=== PATIENT | male | born 1955 | race American Indian/Alaskan Native ===

== ENCOUNTER 2016-05-24 20:20 | Emergency (ER) | payer SELFPAY ==
[2016-05-24 20:54] VITALS: BP 118/80
[2016-05-24 21:28] LABS: Basophils % (Auto) 0.6 % (0.0-1.8); Eosinophils % (Auto) 2.9 % (0.0-4.3); Hemoglobin 13.2 gm/dl (11.8-15.2); Mean Corpuscular HGB Conc 34 % (32-34); Mean Corpuscular Hemoglobin 29 pg (28-32); Mean Corpuscular Volume 85 fl (84-94); Platelet Count 308 K/mm3 (140-440); Red Blood Count 4.61 M/mm3 (3.65-5.03); Red Cell Distribution Width 15.4 % (13.2-15.2); White Blood Count 10.4 K/mm3 (4.5-11.0)
[2016-05-24 21:45] LABS: BUN/Creatinine Ratio 18.23; Calcium 8.9 mg/dL (8.4-10.2); Potassium 3.9 mmol/L (3.6-5.0)
--- NOTE | 2016-05-25 08:28 | XRay Report ---
Chest 2 views. Findings: The heart and pulmonary vessels appear normal. The lungs are mildly hyperinflated and clear. There is no pleural fluid. Impression: No acute findings.
== END 2016-05-24 21:15 | disposition left against medical advice (07) ==
LOC: ED 20:20
DX: R06.00 Dyspnea, unspecified (principal); Z53.21 Procedure and treatment not carried out due to patient leaving prior to being seen by health care provider
CPT/HCPCS: 36415; 71020; 80048; 85025

== ENCOUNTER 2016-10-24 00:15 | Emergency (ER) | payer SELFPAY | END 2016-10-24 02:00 | disposition left against medical advice (07) | LOC: ED 00:15 | DX: J00 Acute nasopharyngitis [common cold] (principal); Z53.21 Procedure and treatment not carried out due to patient leaving prior to being seen by health care provider ==

== ENCOUNTER 2017-01-11 03:50 | Emergency (ER) | payer MEDICARE, OTHER ==
[2017-01-11 04:41] VITALS: BP 137/90
--- NOTE | 2017-01-11 04:48 | Emergency Department Report ---
ED General Adult HPI - General Chief complaint: Extremity Problem,Nontraumatic Stated complaint: BAD KNEES Time Seen by Provider: 01/11/17 04:43 Source: patient, RN notes reviewed Mode of arrival: Ambulatory Limitations: No Limitations - History of Present Illness Initial comments: This is a 61-year-old male, he is previously unknown to me. [facility] The patient presents to the ER with a complaint of painless bilateral knee "popping." No other injuries, no other complaints. -: Gradual, month(s) Severity scale (0 -10): 0 Quality: other Consistency: intermittent Improves with: rest Worsens with: movement Associated Symptoms: denies other symptoms - Related Data Previous Rx's Medication Instructions Recorded Last Taken Type ALBUTEROL Inhaler [ProAir HFA 2 puff IH QID PRN #2 inhalation 09/30/15 01/10/17 Rx Inhaler] Ipratropium/Albuterol Sulfate 1 ampul IH TIDRT #30 ampul.neb 09/30/15 01/10/17 Rx [DUONEB *Not for PRN Use*] Acetaminophen [Tylenol Arthritis] 650 mg PO Q6HR PRN #20 tablet.er 01/11/17 Unknown Rx Gluc 2Kcl/Chondr/Parmjit Hy/Hy AC 1 each PO QDAY #30 capsule 01/11/17 Unknown Rx [Glucosamine & Chondroitin Cap] Ibuprofen [Motrin] 600 mg PO Q8H PRN #30 tablet 01/11/17 Unknown Rx Allergies Allergy/AdvReac Type Severity Reaction Status Date / Time No Known Allergies Allergy Verified 01/11/17 04:39 ED Review of Systems ROS: Stated complaint: BAD KNEES Other details as noted in HPI Constitutional: denies: fever Eyes: denies: eye discharge ENT: denies: epistaxis Respiratory: denies: shortness of breath Cardiovascular: denies: chest pain Gastrointestinal: denies: abdominal pain Musculoskeletal: denies: back pain Skin: denies: lesions ED Past Medical Hx - Past Medical History Previous Medical History?: Yes Hx Hypertension: Yes Hx CVA: No Hx Heart Attack/AMI: No Hx Congestive Heart Failure: No Hx Diabetes: No Hx Deep Vein Thrombosis: No Hx Pulmonary Embolism: No Hx GERD: No Hx Liver Disease: No Hx Renal Disease: No Hx Sickle Cell Disease: No Hx Arthritis: Yes Hx Headaches / Migraines: No Hx Seizures: No Hx Kidney Stones: No Hx Psychiatric Treatment: Yes (PTSD,ANXIETY) Hx Asthma: No Hx COPD: Yes Hx Tuberculosis: No Hx Dementia: No Hx HIV: No - Surgical History Past Surgical History?: Yes Hx Coronary Stent: No Hx Open Heart Surgery: No Hx Pacemaker: No Hx Internal Defibrillator: No Hx Cholecystectomy: No Hx Appendectomy: No Hx Breast Surgery: No Additional Surgical History: intestinal blockage,ABDOMINAL SURGERY 1994 - Social History Smoking Status: Current Every Day Smoker Substance Use Type: None - Medications Home Medications: Home Medications Medication Instructions Recorded Confirmed Last Taken Type ALBUTEROL Inhaler [ProAir HFA 2 puff IH QID PRN #2 inhalation 09/30/15 01/11/17 01/10/17 Rx Inhaler] Ipratropium/Albuterol Sulfate 1 ampul IH TIDRT #30 ampul.neb 09/30/15 01/11/17 01/10/17 Rx [DUONEB *Not for PRN Use*] Acetaminophen [Tylenol Arthritis] 650 mg PO Q6HR PRN #20 tablet.er 01/11/17 Unknown Rx Gluc 2Kcl/Chondr/Parmjit Hy/Hy AC 1 each PO QDAY #30 capsule 01/11/17 Unknown Rx [Glucosamine & Chondroitin Cap] Ibuprofen [Motrin] 600 mg PO Q8H PRN #30 tablet 01/11/17 Unknown Rx ED Physical Exam - General Limitations: No Limitations General appearance: alert, in no apparent distress - Head Head exam: Present: atraumatic, normocephalic - Eye Eye exam: Present: normal appearance, EOMI. Absent: nystagmus - ENT ENT exam: Present: normal exam, normal orophraynx, mucous membranes moist, normal external ear exam - Neck Neck exam: Present: normal inspection, full ROM. Absent: tenderness, meningismus - Respiratory Respiratory exam: Present: normal lung sounds bilaterally. Absent: respiratory distress, wheezes, rales, rhonchi, stridor, chest wall tenderness - Cardiovascular Cardiovascular Exam: Present: regular rate, normal rhythm, normal heart sounds. Absent: bradycardia, tachycardia, irregular rhythm, systolic murmur, diastolic murmur, rubs, gallop - GI/Abdominal GI/Abdominal exam: Present: soft, normal bowel sounds. Absent: distended, tenderness, guarding, rebound, rigid, pulsatile mass - Rectal Rectal exam: Present: deferred - Extremities Exam Extremities exam: Present: normal inspection, full ROM, normal capillary refill. Absent: tenderness, pedal edema, joint swelling, calf tenderness - Back Exam Back exam: Present: normal inspection, full ROM. Absent: tenderness, CVA tenderness (R), CVA tenderness (L), muscle spasm, paraspinal tenderness, vertebral tenderness - Neurological Exam Neurological exam: Present: alert, oriented X3, normal gait, other (Extraocular movements intact. Tongue midline. No facial droop. Facial sensation intact to light touch in the V1, V2, V3 distribution bilaterally. 5 and 5 strength in 4 extremities.. Sensation is intact to light touch in 4 extremities.). Absent : motor sensory deficit - Psychiatric Psychiatric exam: Present: normal affect, normal mood - Skin Skin exam: Present: warm, dry, intact, normal color. Absent: rash ED Course Vital Signs 01/11/17 01/11/17 04:04 04:39 Temperature 98.7 F Pulse Rate 93 H 88 Respiratory 20 20 Rate Blood Pressure 111/77 Blood Pressure 137/90 [Left] O2 Sat by Pulse 95 96 Oximetry ED Medical Decision Making - Lab Data Vital Signs 01/11/17 01/11/17 04:04 04:39 Temperature 98.7 F Pulse Rate 93 H 88 Respiratory 20 20 Rate Blood Pressure 111/77 Blood Pressure 137/90 [Left] O2 Sat by Pulse 95 96 Oximetry - Radiology Data Radiology results: image reviewed interpreted by me: X-ray of the bilateral knees demonstrates no fracture or dislocation, DJD is suggested - Medical Decision Making Differential diagnosis: Arthritis, DJD Assessment and plan: 61-year-old male with probable arthritis and bilateral knees. He is afebrile, with reassuring vital signs, walks with a steady gait, his physical exam is not consistent with fracture, dislocation, cellulitis, he is quite comfortable. He will be discharged with a prescription for acetaminophen as per his request, as well as glucosamine and chondroitin. Critical care attestation.: If time is entered above; I have spent that time in minutes in the direct care of this critically ill patient, excluding procedure time. ED Disposition Clinical Impression: Knee pain Disposition: - TO HOME OR SELFCARE Is pt being admited?: No Does the pt Need Aspirin: No Condition: Stable Instructions: Arthralgia (ED) Additional Instructions: Take medications as directed. Rest and avoid heavy lifting. Avoid strenuous physical activity. Follow-up with the primary care doctor or orthopedist within the next 6 weeks. Return to the ER right away with new pain, worse pain , migration of pain, fevers, chills, confusion, intractable nausea or vomiting, inability to tolerate liquid feeds. Prescriptions: Acetaminophen [Tylenol Arthritis] 650 mg PO Q6HR PRN #20 tablet.er PRN Reason: Pain Gluc 2Kcl/Chondr/Parmjit Hy/Hy AC [Glucosamine & Chondroitin Cap] 1 each PO QDAY # 30 capsule Ibuprofen [Motrin] 600 mg PO Q8H PRN #30 tablet PRN Reason: Pain Referrals: ROSEANN HEATH MD [Staff Physician] - 3-5 Days TO YING MD [Staff Physician] - 3-5 Days
--- NOTE | 2017-01-11 05:08 | XRay Report ---
FINAL REPORT EXAM: XR KNEE BILAT 1-2V HISTORY: Bilateral knee pain. TECHNIQUE: Frontal and lateral radiographs of each knee were obtained. No prior studies are available for comparison. FINDINGS: Note that images of the right knee were obtained with radiopaque external brace/bandage material, which obscures fine soft tissue and osseous detail. There is no fracture or dislocation. There is no significant joint effusion. There is minimal marginal spurring at the inferior pole of the left patella. There is also minimal enthesopathic changes at the anterior-superior left patella, at the distal quadriceps tendon insertion site. There is no significant joint space narrowing. No other discrete osseous abnormality is seen. No significant soft tissue abnormality is identified. IMPRESSION: Minimal spurring at the inferior pole of the left patella. No fracture, dislocation, or other significant osseous abnormality.
== END 2017-01-11 05:03 | disposition home or self-care (01) ==
LOC: ED 03:50
DX: M25.561 Pain in right knee (principal); M25.562 Pain in left knee; I10 Essential (primary) hypertension; M19.90 Unspecified osteoarthritis, unspecified site; J44.9 Chronic obstructive pulmonary disease, unspecified; F17.210 Nicotine dependence, cigarettes, uncomplicated
CPT/HCPCS: 99283

== ENCOUNTER 2017-05-02 05:49 | Emergency (ER) | payer OTHER ==
--- NOTE | 2017-05-02 06:34 | XRay Report ---
FINAL REPORT EXAM: XR CHEST ROUTINE 2V HISTORY: Shortness of breath TECHNIQUE: PA and lateral chest radiographs PRIORS: None. FINDINGS: No mediastinal shift. Cardiac silhouette is not enlarged. No pneumothorax, effusion, or focal pulmonary opacity. No acute skeletal finding. IMPRESSION: No focal pulmonary opacity.
[2017-05-02] MEDS ORDERED: XOPENEX IH ONE ×2 (06:41→06:46)
[2017-05-02] MEDS ORDERED: CATAPRES ONE (06:41)
[2017-05-02] MEDS ORDERED: CATAPRES PO ONE (06:46)
[2017-05-02 08:26] LABS: Basophils # (Auto) 0.1 K/mm3 (0.0-0.1); Basophils % (Auto) 0.7 % (0.0-1.8); Eosinophils # (Auto) 0.2 K/mm3 (0.0-0.4); Eosinophils % (Auto) 2.9 % (0.0-4.3); Hematocrit 37.7 % (35.5-45.6); Hemoglobin 12.4 gm/dl (11.8-15.2); Lymphocytes # (Auto) 1.2 K/mm3 (1.2-5.4); Mean Corpuscular HGB Conc 33 % (32-34); Mean Corpuscular Hemoglobin 28 pg (28-32); Mean Corpuscular Volume 86 fl (84-94); Monocytes # (Auto) 0.6 K/mm3 (0.0-0.8); Monocytes % (Auto) 6.6 % (0.0-7.3); Platelet Count 249 K/mm3 (140-440); Red Blood Count 4.39 M/mm3 (3.65-5.03); Red Cell Distribution Width 14.3 % (13.2-15.2)
[2017-05-02] MEDS ORDERED: ATROVENT IH ONE (08:34)
[2017-05-02] MEDS ORDERED: PROVENTIL IH ONE (08:34)
--- NOTE | 2017-05-02 08:38 | Emergency Department Report ---
ED Shortness of Breath HPI - General Chief Complaint: Dyspnea/Respdistress Stated Complaint: SOB Time Seen by Provider: 05/02/17 08:30 Source: patient, EMS Mode of arrival: Ambulatory Limitations: No Limitations - History of Present Illness Initial Comments: Mr. Galindo is 61 years old male history of COPD presented to the ER with shortness of breath and cough for the last 5 days. He described his cough as productive with greenish sputum. Patient denied any chest pain, fever, nausea or vomiting. MD Complaint: shortness of breath, cough -: Gradual - Related Data Previous Rx's Medication Instructions Recorded Last Taken Type ALBUTEROL Inhaler [ProAir HFA 2 puff IH QID PRN #2 inhalation 09/30/15 01/10/17 Rx Inhaler] Ipratropium/Albuterol Sulfate 1 ampul IH TIDRT #30 ampul.neb 09/30/15 01/10/17 Rx [DUONEB *Not for PRN Use*] Acetaminophen [Tylenol Arthritis] 650 mg PO Q6HR PRN #20 tablet.er 01/11/17 Unknown Rx Glucosam/Chondr/Collagn/Hyalur 1 each PO QDAY #30 capsule 01/11/17 Unknown Rx [Glucosamine & Chondroitin Cap] Ibuprofen [Motrin] 600 mg PO Q8H PRN #30 tablet 01/11/17 Unknown Rx Allergies Allergy/AdvReac Type Severity Reaction Status Date / Time No Known Allergies Allergy Verified 01/11/17 04:39 ED Review of Systems ROS: Stated complaint: SOB Other details as noted in HPI Comment: All other systems reviewed and negative Constitutional: denies: chills, fever Respiratory: cough, shortness of breath, SOB at rest. denies: SOB with exertion Cardiovascular: denies: chest pain, palpitations Gastrointestinal: denies: abdominal pain, nausea, vomiting, diarrhea, constipation Skin: denies: rash Neurological: denies: headache, weakness, numbness, paresthesias ED Past Medical Hx - Past Medical History Previous Medical History?: Yes Hx Hypertension: Yes Hx CVA: No Hx Heart Attack/AMI: No Hx Congestive Heart Failure: No Hx Diabetes: No Hx Deep Vein Thrombosis: No Hx Pulmonary Embolism: No Hx GERD: No Hx Liver Disease: No Hx Renal Disease: No Hx Sickle Cell Disease: No Hx Arthritis: Yes Hx Headaches / Migraines: No Hx Seizures: No Hx Kidney Stones: No Hx Psychiatric Treatment: Yes (PTSD,ANXIETY) Hx Asthma: No Hx COPD: Yes Hx Tuberculosis: No Hx Dementia: No Hx HIV: No Additional medical history: Rt knee pain - Surgical History Past Surgical History?: Yes Hx Coronary Stent: No Hx Open Heart Surgery: No Hx Pacemaker: No Hx Internal Defibrillator: No Hx Cholecystectomy: No Hx Appendectomy: No Hx Breast Surgery: No Additional Surgical History: intestinal blockage,ABDOMINAL SURGERY 1994 - Social History Smoking Status: Current Every Day Smoker Substance Use Type: Alcohol - Medications Home Medications: Home Medications Medication Instructions Recorded Confirmed Last Taken Type ALBUTEROL Inhaler [ProAir HFA 2 puff IH QID PRN #2 inhalation 09/30/15 01/11/17 01/10/17 Rx Inhaler] Ipratropium/Albuterol Sulfate 1 ampul IH TIDRT #30 ampul.neb 09/30/15 01/11/17 01/10/17 Rx [DUONEB *Not for PRN Use*] Acetaminophen [Tylenol Arthritis] 650 mg PO Q6HR PRN #20 tablet.er 01/11/17 Unknown Rx Glucosam/Chondr/Collagn/Hyalur 1 each PO QDAY #30 capsule 01/11/17 Unknown Rx [Glucosamine & Chondroitin Cap] Ibuprofen [Motrin] 600 mg PO Q8H PRN #30 tablet 01/11/17 Unknown Rx ED Physical Exam - General Limitations: No Limitations General appearance: alert, in no apparent distress - Head Head exam: Present: atraumatic, normocephalic, normal inspection - Eye Eye exam: Present: normal appearance, PERRL - ENT ENT exam: Present: normal exam, mucous membranes moist - Neck Neck exam: Present: normal inspection. Absent: tenderness, meningismus, full ROM - Respiratory Respiratory exam: Present: wheezes, decreased breath sounds, prolonged expiratory. Absent: respiratory distress, rales, rhonchi, stridor - Cardiovascular Cardiovascular Exam: Present: regular rate, normal rhythm, normal heart sounds - GI/Abdominal GI/Abdominal exam: Present: soft, normal bowel sounds. Absent: distended, tenderness, guarding, rebound, rigid, organomegaly, mass, bruit, pulsatile mass , hernia - Extremities Exam Extremities exam: Present: normal inspection, full ROM, normal capillary refill. Absent: pedal edema, calf tenderness - Back Exam Back exam: Present: normal inspection. Absent: tenderness, CVA tenderness (R), CVA tenderness (L) - Neurological Exam Neurological exam: Present: alert, oriented X3, CN II-XII intact, normal gait, reflexes normal. Absent: motor sensory deficit - Psychiatric Psychiatric exam: Present: normal affect. Absent: agitated, anxious, manic, homicidal ideation, suicidal ideation - Skin Skin exam: Present: warm, intact, normal color. Absent: cyanosis ED Course Vital Signs 05/02/17 05/02/17 05/02/17 05:55 06:48 07:03 Temperature 97.8 F Pulse Rate 94 H 96 H 84 Pulse Rate [ Bilateral Throughout] Respiratory 20 22 Rate Respiratory Rate [Bilateral Throughout] Blood Pressure 178/117 Blood Pressure 178/117 115/84 [Right] O2 Sat by Pulse 94 96 Oximetry 05/02/17 05/02/17 05/02/17 07:43 07:46 08:00 Temperature Pulse Rate 80 73 72 Pulse Rate [ Bilateral Throughout] Respiratory 17 18 18 Rate Respiratory Rate [Bilateral Throughout] Blood Pressure 154/95 133/91 Blood Pressure [Right] O2 Sat by Pulse 96 96 Oximetry 05/02/17 05/02/17 05/02/17 08:16 08:30 08:45 Temperature Pulse Rate 75 78 Pulse Rate [ 77 Bilateral Throughout] Respiratory 18 21 Rate Respiratory 18 Rate [Bilateral Throughout] Blood Pressure 133/91 133/91 Blood Pressure [Right] O2 Sat by Pulse 95 94 Oximetry 05/02/17 05/02/17 05/02/17 08:46 08:57 09:00 Temperature Pulse Rate 71 71 Pulse Rate [ 78 Bilateral Throughout] Respiratory 19 21 Rate Respiratory 18 Rate [Bilateral Throughout] Blood Pressure 133/91 127/89 Blood Pressure [Right] O2 Sat by Pulse 100 100 Oximetry 05/02/17 05/02/17 05/02/17 09:16 09:31 09:45 Temperature Pulse Rate 78 83 88 Pulse Rate [ Bilateral Throughout] Respiratory 17 19 17 Rate Respiratory Rate [Bilateral Throughout] Blood Pressure 127/89 127/89 127/89 Blood Pressure [Right] O2 Sat by Pulse 94 95 95 Oximetry 05/02/17 05/02/17 10:00 10:15 Temperature Pulse Rate 68 78 Pulse Rate [ Bilateral Throughout] Respiratory 15 24 Rate Respiratory Rate [Bilateral Throughout] Blood Pressure 133/86 133/86 Blood Pressure [Right] O2 Sat by Pulse 95 95 Oximetry - Reevaluation(s) Reevaluation #1: 05/02/17 10:35 Patient stated that he is feeling much better. ED Medical Decision Making - Lab Data Result diagrams: 05/02/17 08:10 05/02/17 08:10 - EKG Data -: EKG Interpreted by Me EKG shows normal: sinus rhythm - EKG Data Interpretation: no acute changes - Radiology Data Radiology results: report reviewed Chest x-ray with no acute findings Critical care attestation.: If time is entered above; I have spent that time in minutes in the direct care of this critically ill patient, excluding procedure time. ED Disposition Clinical Impression: COPD exacerbation, Acute bronchitis Disposition: - TO HOME OR SELFCARE Is pt being admited?: No Condition: Stable Instructions: Chronic Bronchitis (ED), Acute Bronchitis (ED) Referrals: PRIMARY CARE, [Primary Care Provider] - 3-5 Days
[2017-05-02 08:44] LABS: BUN/Creatinine Ratio 15; Blood Urea Nitrogen 20 mg/dL (9-20); Calcium 8.8 mg/dL (8.4-10.2); Hemolysis Index 54
[2017-05-02 10:25] VITALS: BP 133/86
== END 2017-05-02 10:56 | disposition home or self-care (01) ==
LOC: ED 05:49
DX: J44.1 Chronic obstructive pulmonary disease with (acute) exacerbation (principal); J20.9 Acute bronchitis, unspecified; I10 Essential (primary) hypertension; F17.200 Nicotine dependence, unspecified, uncomplicated
CPT/HCPCS: 36415; 71020; 80048; 84484; 85025; 93005; 93010; 94640; 96372; 99284; J2930

== ENCOUNTER 2017-05-08 12:17 | Emergency (ER) | payer OTHER ==
[2017-05-08 12:31] VITALS: BP 140/88
== END 2017-05-09 07:16 | disposition left against medical advice (07) ==
LOC: ED 12:17
DX: J00 Acute nasopharyngitis [common cold] (principal); Z53.21 Procedure and treatment not carried out due to patient leaving prior to being seen by health care provider

== ENCOUNTER 2017-05-21 21:21 | Emergency (ER) | payer OTHER ==
[2017-05-21] MEDS ORDERED: DUONEB *Not for PRN Use IH ONE (21:48)
[2017-05-21 22:22] LABS: Basophils # (Auto) 0.1 K/mm3 (0.0-0.1); Basophils % (Auto) 1.4 % (0.0-1.8); Eosinophils # (Auto) 0.2 K/mm3 (0.0-0.4); Eosinophils % (Auto) 2.8 % (0.0-4.3); Hematocrit 43.1 % (35.5-45.6); Hemoglobin 14.1 gm/dl (11.8-15.2); Lymphocytes # (Auto) 1.6 K/mm3 (1.2-5.4); Lymphocytes % (Auto) 21.1 % (13.4-35.0); Mean Corpuscular HGB Conc 33 % (32-34); Mean Corpuscular Hemoglobin 29 pg (28-32); Mean Corpuscular Volume 87 fl (84-94); Monocytes # (Auto) 0.7 K/mm3 (0.0-0.8); Monocytes % (Auto) 8.8 % (0.0-7.3); Platelet Count 356 K/mm3 (140-440); Red Blood Count 4.95 M/mm3 (3.65-5.03); Red Cell Distribution Width 14.8 % (13.2-15.2)
[2017-05-21 22:41] LABS: BUN/Creatinine Ratio 22; Blood Urea Nitrogen 37 mg/dL (9-20); Calcium 8.8 mg/dL (8.4-10.2); Hemolysis Index 32
--- NOTE | 2017-05-22 00:18 | XRay Report ---
FINAL REPORT PROCEDURE: XR CHEST ROUTINE 2V TECHNIQUE: PA and lateral chest radiographs were obtained. CPT 59492 HISTORY: Shortness of breath COMPARISON: 05/02/2017 FINDINGS: Heart: Normal. Mediastinum/Vessels: Normal. Lungs/Pleural space: Lungs are expanded. There is a 1 centimeter nodule in the lower left lung. The neoplasm not excluded. There are no effusions or pneumothoraces.. Bony thorax: No acute osseous abnormality. Other: IMPRESSION: The heart size is normal.. Lungs are expanded. There is a 1 centimeter nodule in the lower left lung. The neoplasm not excluded. There are no effusions or pneumothoraces..
[2017-05-22] MEDS ORDERED: DUONEB *Not for PRN Use IH ONE ×2 (08:05→10:22)
--- NOTE | 2017-05-22 10:40 | Emergency Department Report ---
ED Shortness of Breath HPI - General Chief Complaint: Dyspnea/Respdistress Stated Complaint: CHEST COLD WITH SOB Time Seen by Provider: 05/22/17 07:39 Source: patient Mode of arrival: Ambulatory Limitations: No Limitations - History of Present Illness Initial Comments: Patient is a [id number] -[place] male with history of smoking presenting with 1 week of cough cold and congestion MD Complaint: shortness of breath, cough -: Gradual, week(s) (1) Severity: moderate Pain Scale: 0 Consistency: constant Improves With: nothing Worsens With: nothing Context: recent URI Associated Symptoms: sputum production Treatments Prior to Arrival: none - Related Data Previous Rx's Medication Instructions Recorded Last Taken Type ALBUTEROL Inhaler [ProAir HFA 2 puff IH QID PRN #2 inhalation 09/30/15 01/10/17 Rx Inhaler] Ipratropium/Albuterol Sulfate 1 ampul IH TIDRT #30 ampul.neb 09/30/15 01/10/17 Rx [DUONEB *Not for PRN Use*] Acetaminophen [Tylenol Arthritis] 650 mg PO Q6HR PRN #20 tablet.er 01/11/17 Unknown Rx Glucosam/Chondr/Collagn/Hyalur 1 each PO QDAY #30 capsule 01/11/17 Unknown Rx [Glucosamine & Chondroitin Cap] Ibuprofen [Motrin] 600 mg PO Q8H PRN #30 tablet 01/11/17 Unknown Rx ALBUTEROL Inhaler [ProAir HFA 2 puff IH QID PRN #1 inhalation 05/02/17 Unknown Rx Inhaler] Azithromycin [Zithromax Z-BRANDY] 250 mg PO DAILY 1 Days tab 05/02/17 Unknown Rx Prednisone [predniSONE 10 mg 10 mg PO .TAPER #1 tab.ds.pk 05/02/17 Unknown Rx (6-Day Pack, 21 Tabs)] ALBUTEROL Inhaler [ProAir HFA 2 puff IH QID PRN #1 inhalation 05/22/17 Unknown Rx Inhaler] Azithromycin [Zithromax Z-BRANDY] 250 mg PO DAILY #6 tablet 05/22/17 Unknown Rx Benzonatate [Tessalon Perle] 100 mg PO BID #10 capsule 05/22/17 Unknown Rx Allergies Allergy/AdvReac Type Severity Reaction Status Date / Time No Known Allergies Allergy Verified 01/11/17 04:39 ED Review of Systems ROS: Stated complaint: CHEST COLD WITH SOB Other details as noted in HPI Comment: All other systems reviewed and negative Constitutional: denies: chills, fever Eyes: denies: eye pain, eye discharge, vision change ENT: denies: ear pain, throat pain Respiratory: cough. denies: shortness of breath, wheezing Cardiovascular: denies: chest pain, palpitations Endocrine: no symptoms reported Gastrointestinal: denies: abdominal pain, nausea, diarrhea Genitourinary: denies: urgency, dysuria Musculoskeletal: denies: back pain, joint swelling, arthralgia Skin: denies: rash, lesions Neurological: denies: headache, weakness, paresthesias Psychiatric: denies: anxiety, depression Hematological/Lymphatic: denies: easy bleeding, easy bruising ED Past Medical Hx - Past Medical History Hx Hypertension: Yes Hx CVA: No Hx Heart Attack/AMI: No Hx Congestive Heart Failure: No Hx Diabetes: No Hx Deep Vein Thrombosis: No Hx Pulmonary Embolism: No Hx GERD: No Hx Liver Disease: No Hx Renal Disease: No Hx Sickle Cell Disease: No Hx Arthritis: Yes Hx Headaches / Migraines: No Hx Seizures: No Hx Kidney Stones: No Hx Psychiatric Treatment: Yes (PTSD,ANXIETY) Hx Asthma: No Hx COPD: Yes Hx Tuberculosis: No Hx Dementia: No Hx HIV: No Additional medical history: Rt knee pain - Surgical History Hx Coronary Stent: No Hx Open Heart Surgery: No Hx Pacemaker: No Hx Internal Defibrillator: No Hx Cholecystectomy: No Hx Appendectomy: No Hx Breast Surgery: No Additional Surgical History: intestinal blockage,ABDOMINAL SURGERY 1994 - Social History Smoking Status: Current Every Day Smoker Substance Use Type: None - Medications Home Medications: Home Medications Medication Instructions Recorded Confirmed Last Taken Type ALBUTEROL Inhaler [ProAir HFA 2 puff IH QID PRN #2 inhalation 09/30/15 01/11/17 01/10/17 Rx Inhaler] Ipratropium/Albuterol Sulfate 1 ampul IH TIDRT #30 ampul.neb 09/30/15 01/11/17 01/10/17 Rx [DUONEB *Not for PRN Use*] Acetaminophen [Tylenol Arthritis] 650 mg PO Q6HR PRN #20 tablet.er 01/11/17 Unknown Rx Glucosam/Chondr/Collagn/Hyalur 1 each PO QDAY #30 capsule 01/11/17 Unknown Rx [Glucosamine & Chondroitin Cap] Ibuprofen [Motrin] 600 mg PO Q8H PRN #30 tablet 01/11/17 Unknown Rx ALBUTEROL Inhaler [ProAir HFA 2 puff IH QID PRN #1 inhalation 05/02/17 Unknown Rx Inhaler] Azithromycin [Zithromax Z-BRANDY] 250 mg PO DAILY 1 Days tab 05/02/17 Unknown Rx Prednisone [predniSONE 10 mg 10 mg PO .TAPER #1 tab.ds.pk 05/02/17 Unknown Rx (6-Day Pack, 21 Tabs)] ALBUTEROL Inhaler [ProAir HFA 2 puff IH QID PRN #1 inhalation 05/22/17 Unknown Rx Inhaler] Azithromycin [Zithromax Z-BRANDY] 250 mg PO DAILY #6 tablet 05/22/17 Unknown Rx Benzonatate [Tessalon Perle] 100 mg PO BID #10 capsule 05/22/17 Unknown Rx ED Physical Exam - General Limitations: No Limitations General appearance: alert, in no apparent distress - Head Head exam: Present: atraumatic, normocephalic - Eye Eye exam: Present: normal appearance - ENT ENT exam: Present: mucous membranes moist - Neck Neck exam: Present: normal inspection - Respiratory Respiratory exam: Present: normal lung sounds bilaterally. Absent: respiratory distress - Cardiovascular Cardiovascular Exam: Present: regular rate, normal rhythm. Absent: systolic murmur, diastolic murmur, rubs, gallop - GI/Abdominal GI/Abdominal exam: Present: soft, normal bowel sounds - Rectal Rectal exam: Present: deferred - Extremities Exam Extremities exam: Present: normal inspection - Back Exam Back exam: Present: normal inspection - Neurological Exam Neurological exam: Present: alert, oriented X3 - Psychiatric Psychiatric exam: Present: normal affect, normal mood - Skin Skin exam: Present: warm, dry, intact, normal color. Absent: rash ED Course Vital Signs 05/21/17 05/22/17 05/22/17 21:30 04:16 04:30 Temperature 98.3 F Pulse Rate 83 75 74 Respiratory 26 H 19 20 Rate Blood Pressure 177/100 134/77 134/77 O2 Sat by Pulse 92 96 98 Oximetry 05/22/17 05/22/17 05/22/17 08:16 08:30 08:45 Temperature Pulse Rate 74 63 65 Respiratory 24 15 16 Rate Blood Pressure 140/72 151/96 147/83 O2 Sat by Pulse 98 98 Oximetry 05/22/17 05/22/17 05/22/17 09:00 09:15 09:30 Temperature Pulse Rate 69 71 76 Respiratory 16 15 15 Rate Blood Pressure 144/86 133/80 137/86 O2 Sat by Pulse 98 96 98 Oximetry 05/22/17 05/22/17 05/22/17 09:45 10:00 10:15 Temperature Pulse Rate 68 80 96 H Respiratory 14 17 13 Rate Blood Pressure 137/88 126/85 151/104 O2 Sat by Pulse 98 98 98 Oximetry 05/22/17 05/22/17 05/22/17 10:30 10:45 10:52 Temperature Pulse Rate 67 67 Respiratory 15 13 16 Rate Blood Pressure 137/87 138/83 O2 Sat by Pulse 94 95 Oximetry - Central Line Placement Right IJ Time Out Performed: Yes Patient Placed on Monitor/Pulse Ox: Yes MD Prep: mask, gown, gloves Central Line Prep: Chlorhexidine scrub Local Anesthesia Used: Lidocaine 1% Ultrasound Used for Placement: Yes Central Line Lumen Inserted: triple Bloods Obtained for Lab: Yes Central Line Position: good blood return, all ports aspirated, flus, sutured in place with 2-0 Dressing Applied: Tegaderm Post Procedure X-Ray: tip of catheter in good p Patient Tolerated Procedure: well Complications: none ED Medical Decision Making - Lab Data Result diagrams: 05/21/17 22:03 05/21/17 22:03 Critical care attestation.: If time is entered above; I have spent that time in minutes in the direct care of this critically ill patient, excluding procedure time. ED Disposition Clinical Impression: Acute bronchitis, Hypotension, Dehydration Disposition: OP ADMIT IP TO THIS HOSP Is pt being admited?: Yes Does the pt Need Aspirin: Yes Condition: Poor Instructions: Acute Bronchitis (ED) Prescriptions: ALBUTEROL Inhaler [ProAir HFA Inhaler] 2 puff IH QID PRN #1 inhalation PRN Reason: Shortness Of Breath Azithromycin [Zithromax Z-BRANDY] 250 mg PO DAILY #6 tablet Benzonatate [Tessalon Perle] 100 mg PO BID #10 capsule Referrals: [facility] [Other] - 3-5 Days
[2017-05-22 11:56] VITALS: BP 139/85
== END 2017-05-22 11:54 | disposition admitted as inpatient to this hospital (09) ==
LOC: ED 21:21
DX: J20.9 Acute bronchitis, unspecified (principal); I95.9 Hypotension, unspecified; E86.0 Dehydration; I10 Essential (primary) hypertension; M19.90 Unspecified osteoarthritis, unspecified site; J44.9 Chronic obstructive pulmonary disease, unspecified; F17.200 Nicotine dependence, unspecified, uncomplicated
CPT/HCPCS: 36415; 71046; 80048; 84484; 85025; 93005; 93010; 94640

== ENCOUNTER 2017-06-06 09:48 | Emergency (ER) | payer OTHER | END 2017-06-06 11:05 | disposition left against medical advice (07) | LOC: ED 09:48 | DX: Z53.21 Procedure and treatment not carried out due to patient leaving prior to being seen by health care provider (principal) ==

== ENCOUNTER 2017-07-08 05:46 | Emergency (ER) | payer SELFPAY | END 2017-07-08 06:25 | disposition left against medical advice (07) | LOC: ED 05:46 | DX: R07.89 Other chest pain (principal); Z53.21 Procedure and treatment not carried out due to patient leaving prior to being seen by health care provider ==

== ENCOUNTER 2017-10-26 14:09 | Emergency (ER) | payer SELFPAY ==
[2017-10-26] MEDS ORDERED: TESSALON PERLES PO ONE (15:53)
[2017-10-26] MEDS ORDERED: DUONEB *Not for PRN Use IH ONE (15:53)
--- NOTE | 2017-10-26 16:03 | Emergency Department Report ---
HPI - General Chief Complaint: Dyspnea/Respdistress Time Seen by Provider: 10/26/17 15:01 - HPI HPI: The patient is a 62-year-old male with a history of COPD and long-standing tobacco use, who presents for evaluation of dyspnea. The patient reports dyspnea and nonproductive cough for the past 8 hours. He states that his dyspnea has been mild to moderate in severity, exacerbated with exertion, and improved at rest. Patient denies trauma to the chest, chest pain, syncope, hemoptysis, unilateral leg swelling, recent immobilization, history of DVT or PE , hx of recent cancer. ED Past Medical Hx - Past Medical History Hx Hypertension: Yes Hx CVA: No Hx Heart Attack/AMI: No Hx Congestive Heart Failure: No Hx Diabetes: No Hx Deep Vein Thrombosis: No Hx Pulmonary Embolism: No Hx GERD: No Hx Liver Disease: No Hx Renal Disease: No Hx Sickle Cell Disease: No Hx Arthritis: Yes Hx Headaches / Migraines: No Hx Seizures: No Hx Kidney Stones: No Hx Psychiatric Treatment: Yes (PTSD,ANXIETY) Hx Asthma: No Hx COPD: Yes Hx Tuberculosis: No Hx Dementia: No Hx HIV: No Additional medical history: Rt knee pain - Surgical History Hx Coronary Stent: No Hx Open Heart Surgery: No Hx Pacemaker: No Hx Internal Defibrillator: No Hx Cholecystectomy: No Hx Appendectomy: No Hx Breast Surgery: No Additional Surgical History: intestinal blockage,ABDOMINAL SURGERY 1994 - Social History Smoking Status: Current Every Day Smoker Substance Use Type: Alcohol - Medications Home Medications: Home Medications Medication Instructions Recorded Confirmed Last Taken Type ALBUTEROL Inhaler [ProAir HFA 2 puff IH QID PRN #2 inhalation 09/30/15 01/11/17 01/10/17 Rx Inhaler] Ipratropium/Albuterol Sulfate 1 ampul IH TIDRT #30 ampul.neb 09/30/15 01/11/17 01/10/17 Rx [DUONEB *Not for PRN Use*] Acetaminophen [Tylenol Arthritis] 650 mg PO Q6HR PRN #20 tablet.er 01/11/17 Unknown Rx Glucosam/Chondr/Collagn/Hyalur 1 each PO QDAY #30 capsule 01/11/17 Unknown Rx [Glucosamine & Chondroitin Cap] Ibuprofen [Motrin] 600 mg PO Q8H PRN #30 tablet 01/11/17 Unknown Rx ALBUTEROL Inhaler [ProAir HFA 2 puff IH QID PRN #1 inhalation 05/02/17 Unknown Rx Inhaler] Azithromycin [Zithromax Z-BRANDY] 250 mg PO DAILY 1 Days tab 05/02/17 Unknown Rx Prednisone [predniSONE 10 mg 10 mg PO .TAPER #1 tab.ds.pk 05/02/17 Unknown Rx (6-Day Pack, 21 Tabs)] ALBUTEROL Inhaler [ProAir HFA 2 puff IH QID PRN #1 inhalation 05/22/17 Unknown Rx Inhaler] Azithromycin [Zithromax Z-BRANDY] 250 mg PO DAILY #6 tablet 05/22/17 Unknown Rx Benzonatate [Tessalon Perle] 100 mg PO BID #10 capsule 05/22/17 Unknown Rx ALBUTEROL Inhaler [ProAir HFA 2 puff IH QID PRN #1 inhalation 10/26/17 Unknown Rx Inhaler] Benzonatate [Tessalon Perles] 100 mg PO Q8HR #20 capsule 10/26/17 Unknown Rx predniSONE [Deltasone] 20 mg PO QDAY #5 tab 10/26/17 Unknown Rx ED Review of Systems ROS: Stated complaint: SHORTNESS OF BREATH Other details as noted in HPI Constitutional: denies: fever ENT: denies: throat or neck pain Respiratory: reports: cough, shortness of breath Cardiovascular: denies: chest pain Endocrine: denies unexplained weight loss or gain Gastrointestinal: denies: abdominal pain, nausea Genitourinary: denies: dysuria Musculoskeletal: denies: leg swelling Skin: denies: rash Neurological: denies: headache Hematological/Lymphatic: denies: easy bleeding or easy bruising Psych: denies sadness or hopelessness Physical Exam - Physical Exam Vital Signs: Vital Signs 10/26/17 14:48 Temperature 98 F Pulse Rate 75 Respiratory 16 Rate Blood Pressure 138/89 O2 Sat by Pulse 97 Oximetry Physical Exam: General: well-nourished, well-developed, no acute distress Head: Normocephalic, atraumatic Eyes: normal sclera ENT: Mucous membranes are pink and moist Neck: trachea midline, neck supple, No neck stiffness, no cervical adenopathy Respiratory: Mildly diminished breath sounds and wheezing present to apical and mid lung escoto bilaterally, no costal retractions, no respiratory distress Cardio: S1 and S2 present, no murmurs, rubs, gallops, capillary refill is brisk Abdomen: Normoactive bowel sounds, soft abdomen, no tenderness Chest WALL/Back: No tenderness to palpation of the chest wall, no CVA tenderness with percussion Musc: No pitting edema Skin: No rash Neuro: no facial drooping, normal speech Psych: Normal affect ED Course Vital Signs 10/26/17 14:48 Temperature 98 F Pulse Rate 75 Respiratory 16 Rate Blood Pressure 138/89 O2 Sat by Pulse 97 Oximetry ED Medical Decision Making - Medical Decision Making The patient was seen and examined by myself. The patient is placed on a telemetry monitor and continuous pulse ox. On initial evaluation, the patient was found to be in no distress. Evaluation orders were placed. The patient is given cough medicine, and a duoneb breathing treatment and steroids for txt of his COPD. Chest x-ray negative for focal consolidation, pleural effusions, pulmonary congestion, pneumothorax, or other acute cardio pulmonary disease process. Lab results are grossly not concerning. The patient was reevaluated and reported that their symptoms were markedly improved. On reexamination the patient is found to have normal respiratory rate and O2 sat on pulse oximetry, with no costal retractions or diminishment of breath sounds on auscultation. The patient is stable for discharge with outpatient follow-up. The patient is given follow-up and return instructions. The patient expressed understanding and agreed with the plan. The patient is discharged in stable condition. Critical care attestation.: If time is entered above; I have spent that time in minutes in the direct care of this critically ill patient, excluding procedure time. ED Disposition Clinical Impression: Asthma exacerbation in COPD, Upper respiratory infection, acute Disposition: TO HOME OR SELFCARE Is pt being admited?: No Does the pt Need Aspirin: No Condition: Stable Instructions: Asthma (ED), Upper Respiratory Infection (ED) Referrals: PRIMARY CARE, [Primary Care Provider] - 3-5 Days [facility] [Outside] - 3-5 Days Time of Disposition: 16:04
--- NOTE | 2017-10-26 16:17 | XRay Report ---
FINAL REPORT EXAM: XR CHEST 1V AP HISTORY: chest pain TECHNIQUE: Single, portable chest x-ray. PRIORS: 21 May 2017. FINDINGS: Cardiac and mediastinal silhouette within normal limits. Lungs are normally expanded, without significant vascular congestion. Nodular densities project over the bilateral lower thorax may represent nipple shadows. No focal consolidation or apparent pneumothorax. Bony thorax grossly unremarkable. IMPRESSION: 1. No acute findings. 2. Possible bilateral nipple shadows incidentally noted. Repeat chest x-ray with nipple markers may be confirmatory, as clinically indicated.
[2017-10-26 17:31] VITALS: BP 136/77
== END 2017-10-26 17:31 | disposition home or self-care (01) ==
LOC: ED 14:09
DX: J44.1 Chronic obstructive pulmonary disease with (acute) exacerbation (principal); J06.9 Acute upper respiratory infection, unspecified; I10 Essential (primary) hypertension; M19.90 Unspecified osteoarthritis, unspecified site; F17.200 Nicotine dependence, unspecified, uncomplicated
CPT/HCPCS: 71045; 93005; 93010; 96374; 99284; J2930

== ENCOUNTER 2017-10-31 10:59 | Emergency (ER) | payer OTHER ==
[2017-10-31] MEDS ORDERED: MAGNESIUM SULFATE 2GM/50ML 2 GM/50 ML BAG IV ONE (11:13)
[2017-10-31] MEDS ORDERED: ATROVENT IH ONE (11:13)
[2017-10-31] MEDS ORDERED: PROVENTIL IH ONE (11:13)
--- NOTE | 2017-10-31 11:49 | Emergency Department Report ---
ED Shortness of Breath HPI - General Chief Complaint: Dyspnea/Respdistress Stated Complaint: PALMER Time Seen by Provider: 10/31/17 11:05 Source: EMS, old records reviewed (patient seen in the ER here 10/26/2017 for COPD exacerbation and upper respiratory infection) Mode of arrival: Stretcher Limitations: No Limitations - History of Present Illness Initial Comments: 62 year male with a past medical history of COPD without oxygen use or previous intubation presents to the hospital with and wheezing upon awakening this a.m. Patient reports he felt fine the preceding days. Diminished breath sounds reported by EMS prior to arrival. Patient received albuterol and Solu-Medrol with some improvement in symptoms but residual wheezing. Patient denies pain. A mild cough productive of white sputum for that without fever. Patient's chief radiation therapist and primary care doctor affiliated with the [facility]. pt continues to smoke several cigarettes a day. - Related Data Previous Rx's Medication Instructions Recorded Last Taken Type ALBUTEROL Inhaler [ProAir HFA 2 puff IH QID PRN #2 inhalation 09/30/15 01/10/17 Rx Inhaler] Ipratropium/Albuterol Sulfate 1 ampul IH TIDRT #30 ampul.neb 09/30/15 01/10/17 Rx [DUONEB *Not for PRN Use*] Acetaminophen [Tylenol Arthritis] 650 mg PO Q6HR PRN #20 tablet.er 01/11/17 Unknown Rx Glucosam/Chondr/Collagn/Hyalur 1 each PO QDAY #30 capsule 01/11/17 Unknown Rx [Glucosamine & Chondroitin Cap] Ibuprofen [Motrin] 600 mg PO Q8H PRN #30 tablet 01/11/17 Unknown Rx ALBUTEROL Inhaler [ProAir HFA 2 puff IH QID PRN #1 inhalation 05/02/17 Unknown Rx Inhaler] Azithromycin [Zithromax Z-BRANDY] 250 mg PO DAILY 1 Days tab 05/02/17 Unknown Rx Prednisone [predniSONE 10 mg 10 mg PO .TAPER #1 tab.ds.pk 05/02/17 Unknown Rx (6-Day Pack, 21 Tabs)] ALBUTEROL Inhaler [ProAir HFA 2 puff IH QID PRN #1 inhalation 05/22/17 Unknown Rx Inhaler] Azithromycin [Zithromax Z-BRANDY] 250 mg PO DAILY #6 tablet 05/22/17 Unknown Rx Benzonatate [Tessalon Perle] 100 mg PO BID #10 capsule 05/22/17 Unknown Rx ALBUTEROL Inhaler [ProAir HFA 2 puff IH QID PRN #1 inhalation 10/26/17 Unknown Rx Inhaler] Benzonatate [Tessalon Perles] 100 mg PO Q8HR #20 capsule 10/26/17 Unknown Rx predniSONE [Deltasone] 20 mg PO QDAY #5 tab 10/26/17 Unknown Rx predniSONE [Deltasone] 40 mg PO QDAY 5 Days tab 10/31/17 Unknown Rx Allergies Allergy/AdvReac Type Severity Reaction Status Date / Time No Known Allergies Allergy Verified 01/11/17 04:39 ED Review of Systems ROS: Stated complaint: PALMER Other details as noted in HPI Comment: All other systems reviewed and negative ED Past Medical Hx - Past Medical History Hx Hypertension: Yes Hx CVA: No Hx Heart Attack/AMI: No Hx Congestive Heart Failure: No Hx Diabetes: No Hx Deep Vein Thrombosis: No Hx Pulmonary Embolism: No Hx GERD: No Hx Liver Disease: No Hx Renal Disease: No Hx Sickle Cell Disease: No Hx Arthritis: Yes Hx Headaches / Migraines: No Hx Seizures: No Hx Kidney Stones: No Hx Psychiatric Treatment: Yes (PTSD,ANXIETY) Hx Asthma: No Hx COPD: Yes Hx Tuberculosis: No Hx Dementia: No Hx HIV: No Additional medical history: Rt knee pain - Surgical History Hx Coronary Stent: No Hx Open Heart Surgery: No Hx Pacemaker: No Hx Internal Defibrillator: No Hx Cholecystectomy: No Hx Appendectomy: No Hx Breast Surgery: No Additional Surgical History: intestinal blockage,ABDOMINAL SURGERY 1994 - Social History Smoking Status: Current Every Day Smoker Substance Use Type: Alcohol - Medications Home Medications: Home Medications Medication Instructions Recorded Confirmed Last Taken Type ALBUTEROL Inhaler [ProAir HFA 2 puff IH QID PRN #2 inhalation 09/30/15 01/11/17 01/10/17 Rx Inhaler] Ipratropium/Albuterol Sulfate 1 ampul IH TIDRT #30 ampul.neb 09/30/15 01/11/17 01/10/17 Rx [DUONEB *Not for PRN Use*] Acetaminophen [Tylenol Arthritis] 650 mg PO Q6HR PRN #20 tablet.er 01/11/17 Unknown Rx Glucosam/Chondr/Collagn/Hyalur 1 each PO QDAY #30 capsule 01/11/17 Unknown Rx [Glucosamine & Chondroitin Cap] Ibuprofen [Motrin] 600 mg PO Q8H PRN #30 tablet 01/11/17 Unknown Rx ALBUTEROL Inhaler [ProAir HFA 2 puff IH QID PRN #1 inhalation 05/02/17 Unknown Rx Inhaler] Azithromycin [Zithromax Z-BRANDY] 250 mg PO DAILY 1 Days tab 05/02/17 Unknown Rx Prednisone [predniSONE 10 mg 10 mg PO .TAPER #1 tab.ds.pk 05/02/17 Unknown Rx (6-Day Pack, 21 Tabs)] ALBUTEROL Inhaler [ProAir HFA 2 puff IH QID PRN #1 inhalation 05/22/17 Unknown Rx Inhaler] Azithromycin [Zithromax Z-BRANDY] 250 mg PO DAILY #6 tablet 05/22/17 Unknown Rx Benzonatate [Tessalon Perle] 100 mg PO BID #10 capsule 05/22/17 Unknown Rx ALBUTEROL Inhaler [ProAir HFA 2 puff IH QID PRN #1 inhalation 10/26/17 Unknown Rx Inhaler] Benzonatate [Tessalon Perles] 100 mg PO Q8HR #20 capsule 10/26/17 Unknown Rx predniSONE [Deltasone] 20 mg PO QDAY #5 tab 10/26/17 Unknown Rx predniSONE [Deltasone] 40 mg PO QDAY 5 Days tab 10/31/17 Unknown Rx ED Physical Exam - General Limitations: No Limitations - Other Other exam information: General: No limitations, patient is alert in no acute distress Head exam: Atraumatic, normocephalic Eyes exam: Normal appearance ENT: Moist mucous membrane, normal oropharynx Neck exam: Normal inspection, full range of motion, no meningismus nontender Respiratory exam: No tachypnea or accessory muscle use. Patient able to speak without difficulty. Mild bilateral wheezing persists Cardiovascular: Normal rate and rhythm Abdomen: Soft, nondistended, and nontender, with normal bowel sounds, no rebound, or guarding Extremity: Full range of motion normal inspection no deformity, no calf tenderness or edema Back: Normal Inspection, full range of motion, no tenderness Neurologic: Alert, oriented x3, cranial nerves intact, no motor or sensory deficit Psychiatric: normal affect, normal mood Skin: Warm, dry, intact ED Course Vital Signs 10/31/17 10/31/17 10/31/17 11:09 11:19 12:25 Temperature 97.8 F Pulse Rate 73 87 Respiratory 20 20 20 Rate Blood Pressure 158/89 Blood Pressure 125/77 [Right] O2 Sat by Pulse 97 97 98 Oximetry - Reevaluation(s) Reevaluation #1: 10/31/17 13:57 abg was attempted x 2 but subsequent attempts refused. Patient is alert and oriented and is not exhibiting signs of CO2 retention ED Medical Decision Making - Radiology Data Radiology results: report reviewed AP CHEST: HISTORY: Shortness of breath, cough AP view of the chest demonstrates a normal mediastinal and cardiac contour with clear lungs and normal bony and soft tissue structures. IMPRESSION: No acute cardiopulmonary process identified. - Medical Decision Making copd execerbation improved with md treatment tolerating exertion o2 92% while sleeping but incr to 98 while awake cxr neg plan to d/c with copd exacerbation treatment - Differential Diagnosis COPD, asthma, bronchitis, pneumonia Critical Care Time: No Critical care attestation.: If time is entered above; I have spent that time in minutes in the direct care of this critically ill patient, excluding procedure time. ED Disposition Clinical Impression: COPD exacerbation, Smoker Disposition: [id number] TO HOME OR SELFCARE Is pt being admited?: No Condition: Stable Instructions: Chronic Obstructive Pulmonary Disease (ED) Additional Instructions: Take the medication as prescribed. Follow-up with your doctor and lung specialist. Return if symptoms worsen as indicated by your discharge instructions. Prescriptions: predniSONE [Deltasone] 40 mg PO QDAY 5 Days tab Referrals: PRIMARY CARE,MD [Primary Care Provider] - 3-5 Days your, lung doctor [Other] - 3-5 Days Time of Disposition: 13:59
--- NOTE | 2017-10-31 12:26 | XRay Report ---
AP CHEST: HISTORY: Shortness of breath, cough AP view of the chest demonstrates a normal mediastinal and cardiac contour with clear lungs and normal bony and soft tissue structures. IMPRESSION: No acute cardiopulmonary process identified.
[2017-10-31 15:57] VITALS: BP 133/86
== END 2017-10-31 15:56 | disposition home or self-care (01) ==
LOC: ED 10:59
DX: J44.1 Chronic obstructive pulmonary disease with (acute) exacerbation (principal); I10 Essential (primary) hypertension; M19.90 Unspecified osteoarthritis, unspecified site; F41.9 Anxiety disorder, unspecified; F17.200 Nicotine dependence, unspecified, uncomplicated
CPT/HCPCS: 71045; 94640; 96365; 99284; J3475

== ENCOUNTER 2018-07-05 07:40 | Emergency (ER) | payer SELFPAY ==
[2018-07-05 07:47] VITALS: BP 129/92
--- NOTE | 2018-07-05 09:07 | Emergency Department Report ---
ED Recheck HPI - General Chief Complaint: Extremity Injury, Lower Stated Complaint: KNEES ACHES/WEAK Time Seen by Provider: 07/05/18 08:52 Source: patient Mode of arrival: Ambulatory Limitations: No Limitations - History of Present Illness Initial Comments: Mr. Galindo is a very pleasant 62-year-old -Citizen Of [place] male who comes to the emergency room today because [facility]. He is complaining of chronic bilateral knee pain and requesting El bandages for his knees. He denies any new trauma. He also states that he put a piece of tissue in his right ear and cannot get it out. Ambulatory. non toxic. no fever. Also requesting refill of his norvasc for blood pressure. He states he is almost out of it. - Related Data Previous Rx's Medication Instructions Recorded Last Taken Type ALBUTEROL Inhaler (OR & NICU) 2 puff IH QID PRN #1 inhalation 10/31/17 Unknown Rx [ProAir HFA Inhaler] Amlodipine Besylate [Norvasc] 5 mg PO DAILY #30 tablet 07/05/18 Unknown Rx Allergies Allergy/AdvReac Type Severity Reaction Status Date / Time No Known Allergies Allergy Verified 07/05/18 07:41 ED Review of Systems ROS: Stated complaint: KNEES ACHES/WEAK Other details as noted in HPI Comment: All other systems reviewed and negative Constitutional: denies: chills, fever Eyes: denies: eye pain ENT: as per HPI, ear pain Respiratory: denies: see HPI Cardiovascular: denies: chest pain Endocrine: denies: intolerance to cold Gastrointestinal: denies: abdominal pain Genitourinary: denies: urgency Musculoskeletal: as per HPI, other (knee pain chronic). denies: back pain Skin: denies: lesions Neurological: denies: headache Psychiatric: denies: anxiety Hematological/Lymphatic: denies: easy bleeding ED Past Medical Hx - Past Medical History Hx Hypertension: Yes Hx CVA: No Hx Heart Attack/AMI: No Hx Congestive Heart Failure: No Hx Diabetes: No Hx Deep Vein Thrombosis: No Hx Pulmonary Embolism: No Hx GERD: No Hx Liver Disease: No Hx Renal Disease: No Hx Sickle Cell Disease: No Hx Arthritis: Yes Hx Headaches / Migraines: No Hx Seizures: No Hx Kidney Stones: No Hx Psychiatric Treatment: Yes (PTSD,ANXIETY) Hx Asthma: No Hx COPD: Yes Hx Tuberculosis: No Hx Dementia: No Hx HIV: No Additional medical history: Rt knee pain - Surgical History Hx Coronary Stent: No Hx Open Heart Surgery: No Hx Pacemaker: No Hx Internal Defibrillator: No Hx Cholecystectomy: No Hx Appendectomy: No Hx Breast Surgery: No Additional Surgical History: intestinal blockage,ABDOMINAL SURGERY 1994 - Family History Family history: no significant - Social History Smoking Status: Current Every Day Smoker - Medications Home Medications: Home Medications Medication Instructions Recorded Confirmed Last Taken Type ALBUTEROL Inhaler (OR & NICU) 2 puff IH QID PRN #1 inhalation 10/31/17 Unknown Rx [ProAir HFA Inhaler] Amlodipine Besylate [Norvasc] 5 mg PO DAILY #30 tablet 07/05/18 Unknown Rx ED Physical Exam - General Limitations: No Limitations General appearance: alert - Head Head exam: Present: atraumatic - Eye Eye exam: Present: normal appearance, PERRL - ENT ENT exam: Present: mucous membranes moist - Expanded ENT Exam Expanded TM/Canal exam: Foreign Body: Right TM (wax and cotton fragments of a qtip in ear) - Neck Neck exam: Present: normal inspection - Respiratory Respiratory exam: Present: normal lung sounds bilaterally - Cardiovascular Cardiovascular Exam: Present: regular rate - GI/Abdominal GI/Abdominal exam: Present: soft, normal bowel sounds - Rectal Rectal exam: Present: deferred - Extremities Exam Extremities exam: Present: normal inspection, full ROM - Back Exam Back exam: Present: normal inspection, full ROM - Neurological Exam Neurological exam: Present: alert, oriented X3 - Psychiatric Psychiatric exam: Present: normal affect, normal mood - Skin Skin exam: Present: warm, dry, intact ED Course Vital Signs 07/05/18 07:46 Temperature 97.8 F Pulse Rate 94 H Respiratory 18 Rate Blood Pressure 129/92 O2 Sat by Pulse 98 Oximetry - Reevaluation(s) Reevaluation #1: 07/05/18 09:24 ear flushed ED Recheck MDM - Medical Decision Making ear flushed el for knee no acute illness VSS will follow up at the [facility] Critical care attestation.: If time is entered above; I have spent that time in minutes in the direct care of this critically ill patient, excluding procedure time. ED Disposition Clinical Impression: Knee pain, Arthritis, Ear foreign body, Medication refill Disposition: TO HOME OR SELFCARE Is pt being admited?: No Does the pt Need Aspirin: No Condition: Stable Additional Instructions[facility] WILL HELP WITH PAIN AND PROVIDE FOR COMFORT NOTHING IN EAR DIET TOLERATED ACTIVITY TOLERATED Referrals: LEXI PERRY MD [Primary Care Provider] - 3-5 Days Time of Disposition: 09:26
== END 2018-07-05 09:49 | disposition home or self-care (01) ==
LOC: ED 07:40
DX: S00.451A Superficial foreign body of right ear, initial encounter (principal); G89.29 Other chronic pain; M25.562 Pain in left knee; M25.561 Pain in right knee; I10 Essential (primary) hypertension; F41.9 Anxiety disorder, unspecified; J44.9 Chronic obstructive pulmonary disease, unspecified; F43.10 Post-traumatic stress disorder, unspecified; F17.200 Nicotine dependence, unspecified, uncomplicated; Z76.0 Encounter for issue of repeat prescription; W45.8XXA Other foreign body or object entering through skin, initial encounter; Y93.89 Activity, other specified; Y92.89 Other specified places as the place of occurrence of the external cause; Y99.8 Other external cause status

== ENCOUNTER 2019-04-01 09:36 | Emergency (ER) | payer MEDICARE, OTHER ==
[2019-04-01] MEDS ORDERED: IPRATROPIUM/ALBUTEROL SULFATE 3 ML AMPUL.NEB IH ONE ×2 (09:45→10:49)
[2019-04-01] MEDS ORDERED: methylPREDNISolone Sod Succinate 125 MG/2 ML INJ IV ONE (09:45)
[2019-04-01] MEDS ORDERED: MAGNESIUM SULFATE 2 GM/50 ML BAG IV ONE (09:46)
[2019-04-01 10:13] VITALS: BP 139/84
[2019-04-01 10:17] LABS: Basophils # (Auto) 0.1 K/mm3 (0.0-0.1); Basophils % (Auto) 0.6 % (0.0-1.8); Eosinophils # (Auto) 0.3 K/mm3 (0.0-0.4); Eosinophils % (Auto) 2.9 % (0.0-4.3); Hematocrit 40.1 % (35.5-45.6); Hemoglobin 13.2 gm/dl (11.8-15.2); Lymphocytes # (Auto) 1.8 K/mm3 (1.2-5.4); Lymphocytes % (Auto) 17.8 % (13.4-35.0); Mean Corpuscular HGB Conc 33 % (32-34); Mean Corpuscular Volume 86 fl (84-94); Monocytes % (Auto) 9.8 % (0.0-7.3); Platelet Count 423 K/mm3 (140-440); Red Blood Count 4.67 M/mm3 (3.65-5.03)
[2019-04-01 10:29] LABS: BUN/Creatinine Ratio 19; Blood Urea Nitrogen 26 mg/dL (9-20); Calcium 9.4 mg/dL (8.4-10.2); Hemolysis Index 14
--- NOTE | 2019-04-01 10:38 | XRay Report ---
CHEST 1 VIEW INDICATION: Shortness of breath. COMPARISON: None FINDINGS: Support devices: None. Heart: Within normal limits. Lungs/Pleura: No acute air space or interstitial disease. Additional findings: None. IMPRESSION: No acute cardiopulmonary process. Signer Name: Jose Guadalupe Briones Jr, MD Signed: 04/01/2019 10:33 AM Workstation Name: [id number]
[2019-04-01] MEDS ORDERED: ALBUTEROL 2.5 MG/3 ML NEBU IH ONE (10:49)
--- NOTE | 2019-04-01 10:53 | Emergency Department Report ---
ED General Adult HPI - General Chief complaint: Dyspnea/Respdistress Stated complaint: PALMER Time Seen by Provider: 04/01/19 09:39 Source: patient, EMS Mode of arrival: Stretcher Limitations: No Limitations - History of Present Illness Initial comments: Patient presents to the emergency department with a chief complaint of shortness of breath that became worse this morning. Patient has a history of COPD but is not on home O2. Patient called EMS because while walking down street of the chemistry was short of breath. Per EMS is O2 sats was 80% on room air. Was placed on 4 L nasal cannula and O2 sats increased to 92. Patient denies any chest pain, abdominal pain, or headache. -: Sudden Severity scale (0 -10): 0 Improves with: none Worsens with: none Associated Symptoms: denies other symptoms Treatments Prior to Arrival: none - Related Data Previous Rx's Medication Instructions Recorded Last Taken Type ALBUTEROL Inhaler (OR & NICU) 2 puff IH QID PRN #1 inhalation 10/31/17 Unknown Rx [ProAir HFA Inhaler] Amlodipine Besylate [Norvasc] 5 mg PO DAILY #30 tablet 07/05/18 Unknown Rx ALBUTEROL Inhaler (OR & NICU) 2 puff IH Q4HR PRN #1 inhalation 04/01/19 Unknown Rx [ProAir HFA Inhaler] Azithromycin [Zithromax Z-BRANDY] 250 mg PO DAILY #6 tablet 04/01/19 Unknown Rx predniSONE [Deltasone] 20 mg PO DAILY #15 tablet 04/01/19 Unknown Rx Allergies Allergy/AdvReac Type Severity Reaction Status Date / Time No Known Allergies Allergy Verified 07/05/18 07:41 ED Review of Systems ROS: Stated complaint: PALMER Other details as noted in HPI Comment: All other systems reviewed and negative Constitutional: denies: chills, fever Eyes: denies: eye pain, eye discharge, vision change ENT: denies: ear pain, throat pain Respiratory: shortness of breath. denies: cough, wheezing Cardiovascular: denies: chest pain, palpitations Endocrine: no symptoms reported Gastrointestinal: denies: abdominal pain, nausea, diarrhea Genitourinary: denies: urgency, dysuria Musculoskeletal: denies: back pain, joint swelling, arthralgia Skin: denies: rash, lesions Neurological: denies: headache, weakness, paresthesias Psychiatric: denies: anxiety, depression Hematological/Lymphatic: denies: easy bleeding, easy bruising ED Past Medical Hx - Past Medical History Hx Hypertension: Yes Hx CVA: No Hx Heart Attack/AMI: No Hx Congestive Heart Failure: No Hx Diabetes: No Hx Deep Vein Thrombosis: No Hx Pulmonary Embolism: No Hx GERD: No Hx Liver Disease: No Hx Renal Disease: No Hx Sickle Cell Disease: No Hx Arthritis: Yes Hx Headaches / Migraines: No Hx Seizures: No Hx Kidney Stones: No Hx Psychiatric Treatment: Yes (PTSD,ANXIETY) Hx Asthma: No Hx COPD: Yes Hx Tuberculosis: No Hx Dementia: No Hx HIV: No Additional medical history: Rt knee pain - Surgical History Hx Coronary Stent: No Hx Open Heart Surgery: No Hx Pacemaker: No Hx Internal Defibrillator: No Hx Cholecystectomy: No Hx Appendectomy: No Hx Breast Surgery: No Additional Surgical History: intestinal blockage,ABDOMINAL SURGERY 1994 - Social History Smoking Status: Current Every Day Smoker Substance Use Type: Alcohol - Medications Home Medications: Home Medications Medication Instructions Recorded Confirmed Last Taken Type ALBUTEROL Inhaler (OR & NICU) 2 puff IH QID PRN #1 inhalation 10/31/17 Unknown Rx [ProAir HFA Inhaler] Amlodipine Besylate [Norvasc] 5 mg PO DAILY #30 tablet 07/05/18 Unknown Rx ALBUTEROL Inhaler (OR & NICU) 2 puff IH Q4HR PRN #1 inhalation 04/01/19 Unknown Rx [ProAir HFA Inhaler] Azithromycin [Zithromax Z-BRANDY] 250 mg PO DAILY #6 tablet 04/01/19 Unknown Rx predniSONE [Deltasone] 20 mg PO DAILY #15 tablet 04/01/19 Unknown Rx ED Physical Exam - General Limitations: No Limitations General appearance: alert, in no apparent distress - Head Head exam: Present: atraumatic, normocephalic - Eye Eye exam: Present: normal appearance, PERRL, EOMI - ENT ENT exam: Present: mucous membranes moist - Neck Neck exam: Present: normal inspection - Respiratory Respiratory exam: Present: respiratory distress, decreased breath sounds, other (pt using accessory muscles for respiration) - Cardiovascular Cardiovascular Exam: Present: regular rate, normal rhythm. Absent: systolic murmur, diastolic murmur, rubs, gallop - GI/Abdominal GI/Abdominal exam: Present: soft, normal bowel sounds - Rectal Rectal exam: Present: deferred - Extremities Exam Extremities exam: Present: normal inspection - Back Exam Back exam: Present: normal inspection - Neurological Exam Neurological exam: Present: alert, oriented X3 - Psychiatric Psychiatric exam: Present: normal affect, normal mood - Skin Skin exam: Present: warm, dry, intact, normal color. Absent: rash ED Course Vital Signs 04/01/19 04/01/19 04/01/19 10:12 10:36 10:37 Temperature 98.4 F Pulse Rate 86 Pulse Rate [ 88 Throughout] Respiratory 26 H 26 H Rate Respiratory 20 Rate [ Throughout] Blood Pressure 139/84 [Left] O2 Sat by Pulse 998 H 98 Oximetry ED Medical Decision Making - Lab Data Result diagrams: 04/01/19 10:07 04/01/19 10:07 Lab Results 04/01/19 04/01/19 Range/Units 10:07 10:07 WBC 10.1 (4.5-11.0) K/mm3 RBC 4.67 (3.65-5.03) M/mm3 Hgb 13.2 (11.8-15.2) gm/dl Hct 40.1 (35.5-45.6) % MCV 86 (84-94) fl MCH 28 (28-32) pg MCHC 33 (32-34) % RDW 15.0 (13.2-15.2) % Plt Count 423 (140-440) K/mm3 Lymph % (Auto) 17.8 (13.4-35.0) % Hopkins % (Auto) 9.8 H (0.0-7.3) % Eos % (Auto) 2.9 (0.0-4.3) % Baso % (Auto) 0.6 (0.0-1.8) % Lymph # 1.8 (1.2-5.4) K/mm3 Hopkins # 1.0 H (0.0-0.8) K/mm3 Eos # 0.3 (0.0-0.4) K/mm3 Baso # 0.1 (0.0-0.1) K/mm3 Seg Neutrophils % 68.9 (40.0-70.0) % Seg Neutrophils # 7.0 (1.8-7.7) K/mm3 Sodium 143 (137-145) mmol/L Potassium 4.2 (3.6-5.0) mmol/L Chloride 101.7 (98-107) mmol/L Carbon Dioxide 26 (22-30) mmol/L Anion Gap 20 mmol/L BUN 26 H (9-20) mg/dL Creatinine 1.4 (0.8-1.5) mg/dL Estimated GFR > 60 ml/min BUN/Creatinine Ratio 19 % Glucose 126 H (75-100) mg/dL Calcium 9.4 (8.4-10.2) mg/dL Magnesium 2.50 H (1.7-2.3) mg/dL NT-Pro-B Natriuret Pep 98.89 (0-900) pg/mL - Radiology Data Radiology results: report reviewed - Medical Decision Making Patient improved with treatments Patient denied admission stating that he was to go home to heat, watch TV, and smoke a cigar. continuous breathing treatment, IV Solu-Medrol, IV magnesium given AMA paperwork signed Critical Care Time: Yes Critical care time in (mins) excluding proc time.: 45 Critical care attestation.: If time is entered above; I have spent that time in minutes in the direct care of this critically ill patient, excluding procedure time. ED Disposition Clinical Impression: COPD exacerbation Disposition: DC-07 LEFT AGAINST MED ADVICE Is pt being admited?: No Condition: Stable Instructions: Chronic Obstructive Pulmonary Disease (ED) Additional Instructions: return if worse Referrals: LEXI PERRY MD [Primary Care Provider] - 3-5 Days [facility] [Outside] - 3-5 Days Forms: AMA Form Time of Disposition: 11:45
== END 2019-04-01 12:00 | disposition left against medical advice (07) ==
LOC: ED 09:36
DX: J44.1 Chronic obstructive pulmonary disease with (acute) exacerbation (principal); I10 Essential (primary) hypertension; F43.10 Post-traumatic stress disorder, unspecified; M19.90 Unspecified osteoarthritis, unspecified site; Z79.899 Other long term (current) drug therapy
CPT/HCPCS: 36415; 71045; 80048; 83735; 83880; 85025; 94640; 96365; 96375; 99285; J2930; J3475; 94644